=== PATIENT | male | born 1970 | race Hispanic/Latino ===

== ENCOUNTER 2016-10-07 16:33 | Emergency (ER) | payer OTHER ==
[~2016-10-07 16:33] MED LIST: SKELAXIN800 MG PO; VICODIN5-300 PO
--- NOTE | 2016-10-07 20:25 | ED HEADACHE COMPLAINT ---
History of Present Illness General Chief Complaint: General Adult Stated Complaint: FEELS LIKE HE'S GOING TO HAVE A SEIZURE, CP Source: patient, family, old records Exam Limitations: no limitations Vital Signs & Intake/Output Vital Signs & Intake/Output Vital Signs Date Time Temp Pulse Resp B/P Pulse O2 O2 Flow FiO2 Ox Delivery Rate 10/07 2316 97.0 52 18 111/52 95 Room Air 10/07 2045 97.5 69 18 124/80 97 Room Air 10/07 1711 98.5 71 18 119/75 96 Room Air ED Intake and Output 10/08 0000 10/07 1200 Intake Total Output Total Balance Patient 191 lb Weight Allergies Coded Allergies: NO KNOWN ALLERGIES (NONE) (12/16/10) Reconcile Medications Butalb/Acetaminophen/Caffeine (Fioricet 50-300-40 MG Capsule) 50 MG-300 MG-40 MG CAPSULE 1-2 TAB PO Q6P PRN headache HYDROCODONE/ACETAMINOPHEN (Hydrocodon-Acetaminophen 5-325) 5 MG-325 MG TABLET 1 TAB PO Q4-6 PRN PAIN Metaxalone 800 MG TABLET 1 TAB PO TID MUSCLE RELAXOR Triage Note: PT TO TRIAGE WITH C/O MIGRAINE, DIZZINESS, NAUSEA SINCE 2PM WHEN PT HAD AN EPISODE OF SEVERE DIZZINESS, HEADACHE AND CHEST PAIN, AND HE FELT LIKE HI'S GOING TO HAVE A SEIZURE. HX OF MIGRAINE, SEIZURES AT AGE 19. VSS. EKG DONE IN [place]. Triage Nurses Notes Reviewed? yes Onset: 2 weeks Duration: week(s):, constant, continues in ED Timing: recent history Quality/Severity: moderate, severe, achy, throbbing Head Injury Location: frontal, temporal, occipital No Modifying Factors: none Associated Symptoms: confusion, nausea/vomiting, vision changes, weakness HPI: 2 weeks prior to admission patient complains of frontal headache radiating to temporal and occipital area constant associated with nausea and photophobia confusion. He denies fever chills chest pain cough shortness of breath headache dysuria rash bleeding. He has sumatriptan at home but does not take it because he doesn't like the way it makes him feel Past History Travel History Traveled to [place] past 21 day No Medical History Any Pertinent Medical History? see below for history Neurological: migraine, seizure Musculoskeletal: disk herniation Surgical History Surgical History: non-contributory Psychosocial History What is your primary language Danish Tobacco Use: Quit >30 days ago ETOH Use: occasional use Illicit Drug Use: denies illicit drug use Family History Hx Contributory? No Review of Systems Review of Systems Constitutional: Reports: no symptoms. Eyes: Reports: no symptoms. Ears, Nose, Throat, Mouth: Reports: no symptoms. Respiratory: Reports: no symptoms. Cardiovascular: Reports: no symptoms. Gastrointestinal/Abdominal: Reports: see HPI, nausea. Genitourinary: Reports: no symptoms. Musculoskeletal: Reports: no symptoms. Skin: Reports: no symptoms. Neurological/Psychological: Reports: see HPI, anxiety, headache. Hematologic/Endocrine: Reports: no symptoms. Endocrine: Reports: no symptoms. Immunologic/Allergic: Reports: no symptoms. All Other Systems: Reviewed and Negative Physical Exam Physical Exam General Appearance: well developed/nourished, alert, awake, anxious, severe distress Head: atraumatic, normal appearance Eyes: Bilateral: normal appearance, PERRL, EOMI. Ears, Nose, Throat: normal pharynx, normal ENT inspection, hearing grossly normal Neck: normal inspection, supple, full range of motion, trachea midline, no midline tenderness Respiratory: normal breath sounds, chest non-tender, no respiratory distress, quiet respiration, lungs clear Cardiovascular: regular rate/rhythm, normal peripheral pulses, norml femoral pulses equa Gastrointestinal: normal bowel sounds, soft, non-tender, no organomegaly Back: normal inspection, normal range of motion Extremities: normal inspection, normal capillary refill, normal range of motion, no edema Psychiatric: awake, alert, oriented x 3 Cranial Nerves: normal hearing, normal speech, PERRL Coordination/Gait: normal finger to nose, normal gait Motor/Sensory: no motor/sensory deficits Reflexes: 2+: bicep (R), bicep (L). Skin: intact, normal color, warm/dry Lymphatic: no anterior cervical inderjit Core Measures Severe Sepsis Present: No Septic Shock Present: No Progress Differential Diagnosis: cluster QUINTEROS, migraine QUINTEROS, tension QUINTEROS Plan of Care: Orders Procedure Date/time Status LIPASE 10/07 1948 Complete COMPREHENSIVE METABOLIC PANEL 10/07 1948 Complete CBC WITHOUT DIFFERENTIAL 10/07 1948 Complete EKG 10/07 163 Active Laboratory Tests 10/07/162027: Anion Gap 11, Estimated GFR > 60, BUN/Creatinine Ratio 18.3, Glucose 108 H, Calcium 9.1, Total Bilirubin 0.4, AST 33, ALT 62, Alkaline Phosphatase 88, Total Protein 7.8, Albumin 4.4, Globulin 3.4, Albumin/Globulin Ratio 1.3, Lipase 57, CBC w Diff NO MAN DIFF REQ, RBC 5.65, MCV 80.7, MCH 26.7 L, RDW 13.9, MPV 9.5, Gran % 48.9, Lymphocytes % 38.9, Monocytes % 10.4 H, Eosinophils % 1.3, Basophils % 0.5, Absolute Granulocytes 2.7, Absolute Lymphocytes 2.2, Absolute Monocytes 0.6, Absolute Eosinophils 0.1, Absolute Basophils 0, PUBS MCHC 33.1 Diagnostic Imaging: Viewed by Me: CT Scan. Discussed w/RAD: CT Scan. Radiology Impression: no acute abnormality Departure Departure Time of Disposition: 2258 Disposition: HOME OR SELF CARE Condition: Stable Clinical Impression Primary Impression: Migraine-cluster headache syndrome Referrals: SAMIA AMARAL,HARSH MONTOYA (PCP/Family) Departure Forms: Customer Survey General Discharge Information Prescriptions: Current Visit Scripts Butalb/Acetaminophen/Caffeine (Fioricet 50-300-40 MG Capsule) 1-2 TAB PO Q6P PRN headache #30 TAB
[2016-10-07 20:39] LABS: ABSOLUTE BASOPHIL COUNT 0 /CUMM (0.0-0.2); ABSOLUTE EOSINOPHIL COUNT 0.1 /CUMM (0.0-0.7); ABSOLUTE GRANULOCYTE CT 2.7 /CUMM (1.4-6.5); ABSOLUTE LYMPH COUNT 2.2 /CUMM (1.2-3.4); ABSOLUTE MONOCYTE COUNT 0.6 /CUMM (0.10-0.60); BASOPHIL % 0.5 % (0.0-2.0); EOSINOPHIL % 1.3 % (0-5); GRANULOCYTE % 48.9 % (42.2-75.2); HEMATOCRIT 45.6 % (42-52); MEAN CORPUSCULAR HGB 26.7 PG (27.0-31.0); MEAN CORPUSCULAR HGB CONC 33.1 G/DL (33.0-37.0); MEAN CORPUSCULAR VOLUME 80.7 FL (80.0-94.0); MEAN PLATELET VOLUME 9.5 FL (7.4-10.4); PLATELET COUNT 170 /CUMM (130-400); RBC DISTRIBUTION WIDTH 13.9 % (11.5-14.5); RED BLOOD CELL CT 5.65 /CUMM (4.70-6.10); WHITE BLOOD CELL COUNT 5.6 /CUMM (4.8-10.8)
--- NOTE | 2016-10-07 21:34 | CT SCAN REPORT ---
EXAMINATION: CT HEAD WITHOUT CONTRAST CLINICAL INFORMATION: Migraine headache. COMPARISON: Noncontrast head CT 12/02/2006. TECHNIQUE: Contiguous axial imaging was performed from the skull base to vertex without intravenous administration of contrast. DLP: 743 mGy-cm FINDINGS: No acute intracranial abnormality. No acute intracranial hemorrhage, mass or mass effect or abnormal extra-axial fluid collections. The density within the dural venous sinuses is within normal limits. The ventricles are normal in size, without hydrocephalus. There are no focal areas of hypoattenuation within a vascular distribution to suggest acute transcortical ischemia. The basilar cisterns are patent. No acute calvarial abnormality is identified. Soft tissues appear unremarkable. The imaged paranasal sinuses and mastoid air cells are well aerated. IMPRESSION: No acute intracranial pathology.
[2016-10-07] MEDS ORDERED: FIORICET 50-301 EACH PO (23:00)
[2016-10-07 23:16] VITALS: BP 111/52
== END 2016-10-07 23:25 ==
LOC: ERH 16:33
PROVIDERS: Emergency Medicine
DX: R07.9 Chest pain, unspecified (principal); G44.009 Cluster headache syndrome, unspecified, not intractable
CPT/HCPCS: 93005; 93010; 96361; 96372; 96374; 96375; J1885; J2765; J3030

== ENCOUNTER 2017-09-24 12:24 | Emergency (ER) | payer OTHER ==
[~2017-09-24] VITALS: Ht 195.6 cm; Wt 124.7 kg
[~2017-09-24 12:24] MED LIST changes: +FIORICET 50-301 EACH PO
[2017-09-24 12:35] VITALS: BP 116/74
--- NOTE | 2017-09-24 13:28 | ED MVC/FALL/TRAUMA COMPLAINT ---
History of Present Illness General Chief Complaint: General Adult Stated Complaint: HIT IN CHEST PLAYING SPORTS Source: patient, old records Exam Limitations: no limitations Vital Signs & Intake/Output Vital Signs & Intake/Output Vital Signs Date Time Temp Pulse Resp B/P B/P Pulse O2 O2 Flow FiO2 Mean Ox Delivery Rate 09/24 1235 97.0 66 20 116/74 97 Room Air Allergies Coded Allergies: NO KNOWN ALLERGIES (NONE) (12/16/10) Reconcile Medications Butalb/Acetaminophen/Caffeine (Fioricet 50-300-40 MG Capsule) 50 MG-300 MG-40 MG CAPSULE 1-2 TAB PO Q6P PRN headache HYDROCODONE/ACETAMINOPHEN (Hydrocodon-Acetaminophen 5-325) 5 MG-325 MG TABLET 1 TAB PO Q4-6 PRN PAIN Ibuprofen 800 MG TABLET 1 TAB PO TID PAIN Metaxalone 800 MG TABLET 1 TAB PO TID MUSCLE RELAXOR Triage Note: PT TO ED C/O SWELLING AND PAIN TO STERNUM. STATES HE WAS PLAYING BASKETBALL AND GOT ELBOWED IN THE CHEST ON TUESDAY. DECLINING MEDS IN TRIAGE. PAIN IS WORSE WITH MOVING, SNEEZING, COUGHING. NO RESP DISTRESS NOTED. Triage Nurses Notes Reviewed? yes HPI: 47M no PMH with epigastric pain and swelling after catching a shoulder to his abdomen playing basketball two days ago. Has been sore since, worse with movement. No n/v, bloody vomit or stools, RUQ or LUQ pain, constipation, diarrhea, dysuria. Otherwise well. Past History Travel History Traveled to [place] past 21 day No Medical History Any Pertinent Medical History? see below for history Neurological: migraine, seizure Musculoskeletal: disk herniation Surgical History Surgical History: non-contributory Psychosocial History What is your primary language Fijian Tobacco Use: Never used ETOH Use: denies use Illicit Drug Use: denies illicit drug use Family History Hx Contributory? No Review of Systems Review of Systems Constitutional: Reports: no symptoms. Eyes: Reports: no symptoms. Ears, Nose, Throat, Mouth: Reports: no symptoms. Respiratory: Reports: no symptoms. Cardiovascular: Reports: no symptoms. Gastrointestinal/Abdominal: Reports: no symptoms. Genitourinary: Reports: no symptoms. Musculoskeletal: Reports: no symptoms. Skin: Reports: no symptoms. Neurological/Psychological: Reports: no symptoms. All Other Systems: Reviewed and Negative Physical Exam Physical Exam General Appearance: well developed/nourished, no apparent distress Head: atraumatic, normal appearance Eyes: Bilateral: normal appearance. Ears, Nose, Throat, Mouth: hearing grossly normal, moist mucous membrane Neck: normal inspection, supple, full range of motion Respiratory: normal breath sounds, chest non-tender, no respiratory distress Cardiovascular: regular rate/rhythm Gastrointestinal: soft, non-tender Extremities: normal range of motion Neurologic/Psych: awake, alert, oriented x 3, normal mood/affect Skin: intact, normal color, warm/dry Core Measures ACS in differential dx? No CVA/TIA Diagnosis No Sepsis Present: No Sepsis Focused Exam Completed? No Progress Differential Diagnosis: aoritic dissection, abd injury, C/T/L spine injury, ext injury, ICH, pelvis injury, pnemothorax, spinal cord injury Plan of Care: Orders Procedure Date/time Status XRY-CHEST XRAY, TWO VIEWS 09/24 1307 Active Diagnostic Imaging: Viewed by Me: Radiology Read. Discussed w/RAD: Radiology Read. Radiology Impression: PATIENT: KEN CARUSO PRESENT AGE: 47 PATIENT ACCOUNT NO: [id number] : 72 LOCATION: [facility] ORDERING PHYSICIAN: Tirso GLASGOW SERVICE DATE: 09/24/17 EXAM TYPE: RAD - XRY-CHEST XRAY, TWO VIEWS EXAMINATION: XR CHEST CLINICAL INFORMATION: Trauma to sternum COMPARISON: None TECHNIQUE: 2 views of the chest were obtained. FINDINGS: There is no evidence of acute parenchymal disease, pneumothorax, or pleural effusion. The cardiopericardial silhouette is upper limits of normal in size. No evidence of pulmonary edema. There are small lung volumes with some crowding of vessels at the lung bases. Evaluation of the sternum is limited due to underpenetration and rotation. No definite sternal fracture is seen. IMPRESSION: No acute disease. DICTATED BY: Alfredo Hernandez MD DATE/TIME DICTATED:09/24/171434 CLOTH WASHER OPERATOR:DONN DATE/TIME TRANSCRIBED:09/24/171434 Departure Departure Disposition: HOME OR SELF CARE Condition: Stable Clinical Impression Primary Impression: Abdominal wall pain Referrals: Fam AMARAL,Amy Terry (PCP/Family) Additional Instructions: Follow up with your PCP. If your symptoms worsen or if any new symptoms, return to ED. Ice and Ibuprofen for pain. Departure Forms: Customer Survey General Discharge Information Prescriptions: Current Visit Scripts Ibuprofen 1 TAB PO TID #90 TAB
--- NOTE | 2017-09-24 14:44 | RADIOLOGY REPORT ---
EXAMINATION: XR CHEST CLINICAL INFORMATION: Trauma to sternum COMPARISON: None TECHNIQUE: 2 views of the chest were obtained. FINDINGS: There is no evidence of acute parenchymal disease, pneumothorax, or pleural effusion. The cardiopericardial silhouette is upper limits of normal in size. No evidence of pulmonary edema. There are small lung volumes with some crowding of vessels at the lung bases. Evaluation of the sternum is limited due to underpenetration and rotation. No definite sternal fracture is seen. IMPRESSION: No acute disease.
[2017-09-24] MEDS ORDERED: IBUPROFEN800 M1 PO (15:02)
== END 2017-09-24 15:11 ==
LOC: ERH 12:24
DX: R10.13 Epigastric pain (principal)
CPT/HCPCS: 71046